=== PATIENT | female | born 1960 | race Caucasian/White ===

== ENCOUNTER 2017-09-05 19:51 | Emergency (ER) | payer OTHER ==
[~2017-09-05] VITALS: Ht 160 cm; Wt 66.2 kg
[2017-09-05] MEDS ORDERED: PEPCID20 MG PO (23:43)
[2017-09-05] MEDS ORDERED: INTESTINEX680 M1 PO (23:43)
[2017-09-05] MEDS ORDERED: LEVSIN/SL0.125 MG PO (23:43)
== END 2017-09-05 23:54 | disposition home or self-care (01) ==
LOC: ER 19:51
DX: K29.00 Acute gastritis without bleeding (principal)

== ENCOUNTER 2018-01-05 09:28 | Emergency (ER) | payer OTHER ==
[~2018-01-05] VITALS: Ht 162.6 cm; Wt 65.3 kg
[~2018-01-05 09:28] MED LIST: INTESTINEX680 M1 PO; LEVSIN/SL0.125 MG PO; PEPCID20 MG PO
== END 2018-01-05 12:58 | disposition home or self-care (01) ==
LOC: ER 09:28
DX: R10.12 Left upper quadrant pain (principal); R10.11 Right upper quadrant pain; F41.1 Generalized anxiety disorder